=== PATIENT | female | born 1965 | race African-American/Black ===

== ENCOUNTER → 2018-12-20 | Outpatient (CLI) | payer OTHER ==
[~2018-12-20] MED LIST: FERR325T72 PO; IBUP-1060 PO; TRAM50TA PO
[2018-12-25 13:55] LABS: ALBUMIN 3.4 g/dL (3.4-5.0); CALCIUM 9.3 mg/dL (8.5-10.1); CREATININE 0.7 mg/dL (0.6-1.0); GFR 106.7; POTASSIUM 4.1 mmol/L (3.5-5.1)
[2018-12-25 13:56] LABS: BASO % 1 % (0-3); EOS % 3 % (0-3); HEMATOCRIT 30.9 % (36.0-47.0); HEMOGLOBIN 10.3 g/dL (12.0-15.5); LYMPH % 25 % (24-48); MEAN CORPUSCULAR HEMOGLOBIN 27 pg (25-35); MEAN CORPUSCULAR HGB CONC 33 g/dL (31-37); MEAN CORPUSCULAR VOLUME 82 fL (79-100); MONO % 7 % (0-9); NEUT % 64 % (31-73); PLATELET COUNT 363 x10^3/uL (140-400); PROTHROMBIN TIME PATIENT 14.1 SEC (11.7-14.0); RED BLOOD COUNT 3.76 x10^6/uL (3.50-5.40); RED CELL DISTRIBUTION WIDTH 16.5 % (11.5-14.5); WHITE BLOOD COUNT 7.2 x10^3/uL (4.0-11.0)
[2018-12-25 13:57] LABS: EOS # 0.2 x10^3/uL (0.0-0.7); LYMPH # 1.8 x10^3/uL (1.0-4.8); MONO # 0.5 x10^3/uL (0.0-1.1); NEUT # 4.6 x10^3/uL (1.8-7.7)
[2018-12-25 14:01] LABS: BILIRUBIN,URINE NEGATIVE (NEG); CLARITY,URINE CLEAR; COLOR,URINE YELLOW; PROTEIN,URINE NEGATIVE (NEG-TRACE)
[2018-12-25 14:02] LABS: BACTERIA,URINE MANY /HPF (0-FEW); NITRITE,URINE POSITIVE (NEG); RBC,URINE OCC /HPF (0-2); SQUAMOUS EPITHELIAL CELL,UR MOD /LPF; WBC,URINE 20-40 /HPF (0-4)
== END | disposition home or self-care (01) ==
LOC: SURGPAT 12:58
PROVIDERS: ATTEND Orthopaedic Surgery
DX: Z01.818 Encounter for other preprocedural examination (principal); M25.552 Pain in left hip; M16.12 Unilateral primary osteoarthritis, left hip
CPT/HCPCS: 36415; 80048; 81001; 82040; 82306; 85025; 85610; 85651; 85730; 87086; 87186; 87641

== ENCOUNTER → 2019-01-03 | Outpatient (CLI) | payer OTHER ==
[~2019-01-03] MED LIST changes: +CIPR500T PO; +ERGO500027 PO; +SULF-143 PO
[2019-01-03 15:23] LABS: BILIRUBIN,URINE NEGATIVE (NEG); CLARITY,URINE CLEAR; COLOR,URINE YELLOW; NITRITE,URINE POSITIVE (NEG); PH,URINE 5.5; PROTEIN,URINE NEGATIVE (NEG-TRACE); UROBILINOGEN,URINE 0.2 mg/dL (0.2 mg/dL)
[2019-01-03 15:36] LABS: BACTERIA,URINE MANY /HPF (0-FEW); SQUAMOUS EPITHELIAL CELL,UR MOD /LPF; WBC,URINE >40 /HPF (0-4)
[2019-01-03 15:37] LABS: RBC,URINE OCC /HPF (0-2)
== END | disposition home or self-care (01) ==
LOC: LAB 14:48
PROVIDERS: ATTEND Orthopaedic Surgery
DX: Z87.440 Personal history of urinary (tract) infections (principal)
CPT/HCPCS: 81001; 87086; 87186

== ENCOUNTER → 2019-05-17 | Outpatient (CLI) | payer OTHER ==
[2019-02-01 15:24] VITALS: BP 111/59
[~2019-05-17] MED LIST changes: +WARF3TAB50 PO
--- NOTE | 2019-05-17 15:43 | RAD ---
EXAM: Left hip, 2 views; pelvis, single view. HISTORY: Arthroplasty. COMPARISON: None. FINDINGS: Frontal views of the pelvis and frontal and frog-leg views of the left hip are obtained. There is a left hip arthroplasty in expected position. IMPRESSION: Left hip arthroplasty in expected position. Electronically signed by: Audrey Salmon MD (05/17/2019 3:40 PM) [facility]
== END | disposition home or self-care (01) ==
LOC: RAD 14:17
PROVIDERS: ATTEND Physician Assistant
DX: Z47.1 Aftercare following joint replacement surgery (principal); Z96.642 Presence of left artificial hip joint
CPT/HCPCS: 72170; 73501

== ENCOUNTER → 2021-04-14 | Outpatient (CLI) | payer OTHER ==
[2019-02-01 15:24] VITALS: BP 111/59
[~2021-04-14] MED LIST changes: -CIPR500T PO; +CIPR500T2 PO
--- NOTE | 2021-04-14 15:56 | RAD ---
EXAM: XR HIP (WITH OR WITHOUT PELVIS) 1 VIEW 04/14/2021 9:06 AM CLINICAL INDICATION: Bilateral hip pain COMPARISON: Pelvis radiograph 05/17/2019 TECHNIQUE: AP view of the pelvis and AP and frog-leg lateral view of the hips FINDINGS: There is a left total hip prosthesis in unchanged alignment. No periprosthetic fracture. There is het erotopic ossification at the superolateral aspect of the prosthesis, unchanged. There is mild to mode rate right hip joint space narrowing with acetabular and femoral head osteophytes. Pubic symphysis an d sacral joints are unremarkable. IMPRESSION: 1. Unchanged left total hip prosthesis. 2. Unchanged mild/moderate degenerative joint disease of the right hip. Electronically signed by: Dimple Robles MD (04/14/2021 3:54 PM) [id number]
== END ==
LOC: RAD 08:51
PROVIDERS: ATTEND Family Medicine
DX: Z02.71 Encounter for disability determination (principal); M16.11 Unilateral primary osteoarthritis, right hip; M25.751 Osteophyte, right hip; M25.851 Other specified joint disorders, right hip; Z96.642 Presence of left artificial hip joint
CPT/HCPCS: 73521